=== PATIENT | male | born 1980 | race African-American/Black ===

== ENCOUNTER 2019-03-15 18:23 | Emergency (ER) | payer OTHER ==
[~2019-03-15] VITALS: Ht 193 cm; Wt 129.3 kg
--- NOTE | 2019-03-15 18:28 | ED.ADGEN ---
Adult General Chief Complaint Chief Complaint "".. I was moving a bunch of stuff.. and stepped off the trailer.. caught my Rt let between trailer.. and came down hard on my Lt foot ankle.. ".." This is my lst day in [place].. 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 Patient has obvious edema at both sites. Does have distal neurovascular. Point tenderness midshaft right tibia. Point tenderness head of left metatarsal. Positive squid foot squeeze. Pt. can not bear weight without marked pain. No other injury. Up-to-date with vaccinations. Will be following at [facility] for medical care,. Review of Systems Review of Systems Constitutional: Denies fever or chills [] Eyes: Denies change in visual acuity, redness, or eye pain [] HENT: Denies nasal congestion or sore throat [] Respiratory: Denies cough or shortness of breath [] Cardiovascular: No additional information not addressed in HPI [] GI: Denies abdominal pain, nausea, vomiting, bloody stools or diarrhea [] : Denies dysuria or hematuria [] Musculoskeletal: Denies back pain or joint pain []complains of bilateral leg and ankle pain Integument: Denies rash or skin lesions [] Neurologic: Denies headache, focal weakness or sensory changes [] Endocrine: Denies polyuria or polydipsia [] All other systems were reviewed and found to be within normal limits, except as documented in this note. Family History Family History Noncontributory Current Medications Current Medications Current Medications Medications (Trade) Dose Ordered Sig/Jazlyn Start Time Stop Time Status Last Admin Dose Admin Hydrocodone Bitartrate/ Ibuprofen (Vicoprofen 7.5-200) 2 tab 1X ONCE 03/15/19 19:30 03/15/19 19:31 DC 03/15/19 19:14 2 TAB Allergies Allergies Allergies Coded Allergies Type Severity Reaction Last Updated Verified No Known Drug Allergies 03/15/19 No Physical Exam Physical Exam Constitutional: Well developed, well nourished, in moderately acute distress, non-toxic appearance. [] HENT: Normocephalic, atraumatic, bilateral external ears normal, oropharynx moist, no oral exudates, nose normal. [] Eyes: PERRLA, EOMI, conjunctiva normal, no discharge. [] Neck: Normal range of motion, no tenderness, supple, no stridor. [] Cardiovascular:Heart rate regular rhythm, no murmur [] Lungs & Thorax: Bilateral breath sounds clear to auscultation [] Abdomen: Bowel sounds normal, soft, no tenderness, no masses, no pulsatile masses. [] Skin: Warm, dry, no erythema, no rash. [] Back: No tenderness, no CVA tenderness. [] Extremities: Right tib. area tenderness and Lt ankle /foot tenderness, , no cyan osis, no clubbing, ROM intact, left ankle and foot edema. [] Neurologic: Alert and oriented X 3, normal motor function, normal sensory function, no focal deficits noted. [] Psychologic: Affect anxious judgement normal, mood normal. [] Current Patient Data Vital Signs Vital Signs Date Time Temp Pulse Resp B/P (MAP) Pulse Ox O2 Delivery O2 Flow Rate FiO2 03/15/19 18:30 98.5 102 20 98 Room Air EKG EKG [] Radiology/Procedures Radiology/[place] [address] IMAGING REPORT Signed PATIENT: XOCHITL LOJA ACCOUNT: [id number] : 1980 LOCATION: ER AGE: 38 SEX: M EXAM STATUS: REG ER ORD. PHYSICIAN: GOSIA HAMMOND MD REASON: Fall off trailer.Lower right Leg caught between car and trailer PROCEDURE: TIBIA FIBULA RIGHT Exam: Right tibia fibula 2 views, right ankle 3 views, right foot 3 views INDICATION: Fall TECHNIQUE: Frontal and lateral views of the right tibia-fibula. Frontal, lateral and oblique views of the right ankle and right foot. Comparisons: None FINDINGS: Tib-fib: Bone mineralization and development are normal. No acute or healed fractures. Soft tissues are unremarkable. Joint spaces are well-maintained. Ankle: Bone mineralization and development are normal. No acute or healed fractures. Soft tissues are unremarkable. Joint spaces are well-maintained. Foot: There is a mildly displaced transverse fracture through the base of the fifth metatarsal likely extending into the tarsometatarsal joint. Mild osteophytic change at the first MTP joint. Soft tissues are unremarkable. IMPRESSION: 1. Mildly displaced fracture through the base of the right fifth metatarsal(Delvalle fracture) 2. No acute osseous abnormality of the right ankle 3. No acute osseous abnormality of the right tibia or fibula Electronically signed by: Patsy Sapp MD (03/15/2019 8:03 PM) [facility] DICTATED AND SIGNED BY: PATSY SAPP MD DATE: 03/15/192002 CC: GOSIA HAMMOND MD; PCP,NO ~[][place] [address] IMAGING REPORT Signed PATIENT: XOCHITL LOJA ACCOUNT: [id number] : 1980 LOCATION: ER AGE: 38 SEX: M EXAM STATUS: REG ER ORD. PHYSICIAN: GOSIA HAMMOND MD REASON: Fall off trailer, landed on left foot and ankle wrong PROCEDURE: ANKLE LEFT 3V Exam: Right tibia fibula 2 views, right ankle 3 views, right foot 3 views INDICATION: Fall TECHNIQUE: Frontal and lateral views of the right tibia-fibula. Frontal, lateral and oblique views of the right ankle and right foot. Comparisons: None FINDINGS: Tib-fib: Bone mineralization and development are normal. No acute or healed fractures. Soft tissues are unremarkable. Joint spaces are well-maintained. Ankle: Bone mineralization and development are normal. No acute or healed fractures. Soft tissues are unremarkable. Joint spaces are well-maintained. Foot: There is a mildly displaced transverse fracture through the base of the fifth metatarsal likely extending into the tarsometatarsal joint. Mild osteophytic change at the first MTP joint. Soft tissues are unremarkable. IMPRESSION: 1. Mildly displaced fracture through the base of the right fifth metatarsal(Delvalle fracture) 2. No acute osseous abnormality of the right ankle 3. No acute osseous abnormality of the right tibia or fibula Electronically signed by: Patsy Sapp MD (03/15/2019 8:03 PM) [facility] DICTATED AND SIGNED BY: PATSY SAPP MD DATE: 03/15/192002 CC: GOSIA HAMMOND MD; PCP,NO ~ Course & Med Decision Making Course & Med Decision Making Pertinent Labs and Imaging studies reviewed. (See chart for details) Distal neurovascular intact after application of splint. Patient use crutches. Patient to elevate left foot and ankle. Patient follow-up primary care. Patient follow-up orthopedics. Patient take Tylenol and ibuprofen for pain. For marked pain may take Vicoprofen up 4 times a day. Return if any concerns. [] Final Impression Final Impression 1. Sprain / Strain Lt ankle 2. Delvalle Fx. Lt. 5th Metatarsal 3. Contusion Rt. Tib/Fib[] Dragon Disclaimer Dragon Disclaimer This electronic medical record was generated, in whole or in part, using a voice recognition dictation system. 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 Discharge Information Condition at Discharge: Improved, Stable Disposition/Orders: D/C to Home Dischare Medications Current Medications Hydrocodone Bitartrate/ Ibuprofen (Vicoprofen 7.5-200) 2 tab 1X ONCE PO Last administered on 03/15/19at 19:14; Admin Dose 2 TAB; Start 03/15/19 at 19:30; Stop 03/15/19 at 19:31; Status DC Active Scripts Active Acetaminophen 500 Mg Tablet 1,000 Mg PO QIDPRN PRN Ibuprofen 400 Mg Tablet 400 Mg PO QIDPRN PRN Hydrocodone-Ibuprofen 7.5-200 (Hydrocodone/Ibuprofen) 1 Each Tablet 1 Tab PO PRN Q6HRS PRN Dragon Disclaimer This chart was dictated in whole or in part using Voice Recognition software in a busy, high-work load, and often noisy Emergency Department environment. It may contain unintended and wholly unrecognized errors or omissions. GOSIA HAMMOND MD Mar 15, 2019 18:28
[2019-03-15 18:30] VITALS: BP 141/96
[2019-03-15] MEDS ORDERED: HYDROcodon/IBUPROFEN 7.5/200MG 1 TAB TABLET PO ONE (19:30)
[2019-03-15] MEDS ORDERED: HYDR-1179 PO (19:52)
[2019-03-15] MEDS ORDERED: ACET500T68 PO (19:52)
[2019-03-15] MEDS ORDERED: IBUP400T18 PO (19:52)
--- NOTE | 2019-03-15 20:07 | RAD ---
Exam: Right tibia fibula 2 views, right ankle 3 views, right foot 3 views INDICATION: Fall TECHNIQUE: Frontal and lateral views of the right tibia-fibula. Frontal, lateral and oblique views of the right ankle and right foot. Comparisons: None FINDINGS: Tib-fib: Bone mineralization and development are normal. No acute or healed fractures. Soft tissues are unremarkable. Joint spaces are well-maintained. Ankle: Bone mineralization and development are normal. No acute or healed fractures. Soft tissues are unremarkable. Joint spaces are well-maintained. Foot: There is a mildly displaced transverse fracture through the base of the fifth metatarsal likely extending into the tarsometatarsal joint. Mild osteophytic change at the first MTP joint. Soft tissues are unremarkable. IMPRESSION: 1. Mildly displaced fracture through the base of the right fifth metatarsal(Delvalle fracture) 2. No acute osseous abnormality of the right ankle 3. No acute osseous abnormality of the right tibia or fibula Electronically signed by: Patsy Dawson MD (03/15/2019 8:03 PM) [facility]
== END 2019-03-15 20:05 | disposition home or self-care (01) ==
LOC: ER 18:23
DX: S92.351A Displaced fracture of fifth metatarsal bone, right foot, initial encounter for closed fracture (principal); S80.11XA Contusion of right lower leg, initial encounter; W23.0XXA Caught, crushed, jammed, or pinched between moving objects, initial encounter; Y93.89 Activity, other specified; Y92.89 Other specified places as the place of occurrence of the external cause; Y99.8 Other external cause status
CPT/HCPCS: 29515; 73590; 73610; 73630; 99284